=== PATIENT | female | born 1965 | race Caucasian/White ===

== ENCOUNTER 2016-07-22 07:34 | Emergency (ER) | payer MEDICAID ==
[~2016-07-22] VITALS: Ht 149.9 cm; Wt 63.0 kg
[~2016-07-22 07:34] MED LIST: CARAS PO; FAMO-18 PO; FAMO40TA52 PO; IBUP-1542 PO; OMEP20CA9 PO; ONDA4TAB35 PO; RANI150T5 PO; RANI150T9 PO
[2016-07-22 07:37] VITALS: Ht 149.9 cm; Wt 63.0 kg
[2016-07-22] MEDS ORDERED: LORATADINE 10 MG TAB PO STA (07:53)
[2016-07-22] MEDS ORDERED: IBUPROFEN 600 MG TAB PO STA (07:53)
--- NOTE | 2016-07-22 07:58 | ERD ---
ER Documentation Chief Complaint Date/Time DATE: 07/22/16 TIME: 07:56 Chief Complaint COUGH CONGESTION AND ALLERGIES X3 WKS HPI This is a 51-year-old female with no relevant medical history presenting to the emergency department complaining of cough, congestion, sneezing for the past 3 weeks. Patient states that she has been having a lot of phlegm and nasal congestion since last night and coughing more frequently since last night. Patient states that she does have mild chest pain with deep breath. Patient states that she has tried medication yesterday without any relief. Patient denies any fever ROS All systems reviewed and are negative except as per history of present illness. Medications Home Meds Active Scripts Acetaminophen* (Acetaminophen*) 650 Mg Tablet, 650 MG PO Q6H Y for PAIN AND OR ELEVATED TEMP, #30 TAB Prov:GEOVANNA OLIVER PA-C 07/22/16 Fluticasone Propionate (Flonase Allergy Relief) 9.9 Ml [place].susp, 1 SPRAY NASAL BID, #1 BOTTLE TO EACH NOSTRIL Prov:GEOVANNA OLIVER PA-C 07/22/16 Loratadine* (Claritin*) 10 Mg Tablet, 10 MG PO DAILY, #30 TAB Prov:GEOVANNA OLIVER PA-C 07/22/16 Famotidine* (Famotidine*) 40 Mg Tablet, 40 MG PO HS, #30 TAB Prov:SARAH LOFTON PA-C 11/11/15 Ibuprofen* (Motrin*) 600 Mg Tab, 600 MG PO Q6H Y for PAIN AND OR ELEVATED TEMP, #30 TAB Prov:SARAH LOFTON PA-C 11/11/15 Ranitidine Hcl* (Zantac*) 150 Mg Tablet, 150 MG PO BID for EPIGASTRIC PAIN, #30 TAB Prov:GEOVANNA OLIVER PA-C 05/18/15 Ondansetron Hcl* (Zofran* ODT) 4 mg -ODT Tab.disper, 4 MG PO Q6 Y for NAUSEA AND /OR VOMITING, #10 TAB Prov:GEOVANNA OLIVER PA-C 05/18/15 Omeprazole* (Prilosec*) 20 Mg Capsule.dr, 20 MG PO DAILY, #20 CAP Prov:GEOVANNA OLIVER-C 05/18/15 Famotidine* (Pepcid*) 20 Mg Tablet, 20 MG PO QHS for 4 Days, TAB Prov:GEOVANNA OLIVER PA-C 05/18/15 Sucralfate* (Carafate*) 1 Gm/10 Ml Susp, 1 GM PO TID Y for reflux symptoms for 14 Days, EA Prov:RAMEZ SALAS MD 04/12/15 Omeprazole* (Prilosec*) 20 Mg Capsule.dr, 20 MG PO DAILY for 30 Days, CAP Prov:RAMEZ SALAS MD 04/12/15 Ranitidine Hcl* (Zantac*) 150 Mg Tablet, 150 MG PO BID Y for Refulx symptoms, # 30 TAB Prov:RAMEZ SALAS MD 04/12/15 Reported Medications Ranitidine Hcl* (Ranitidine Hcl*) 150 Mg Tablet, 150 MG PO Q12, TAB 04/12/15 Allergies Allergies: Coded Allergies: No Known Allergy (Unverified , 11/11/15) PMhx/Soc History of Surgery: No Anesthesia Reaction: No Hx Neurological Disorder: No Hx Respiratory Disorders: No Hx Cardiac Disorders: No Hx Psychiatric Problems: No Hx Miscellaneous Medical Probl: No Hx Alcohol Use: No Hx Substance Use: No Hx Tobacco Use: No Physical Exam Vitals Vital Signs Date Time Temp Pulse Resp B/P Pulse Ox O2 Delivery O2 Flow Rate FiO2 07/22/16 07:37 98.9 115 18 109/54 97 Physical Exam GENERAL: well-developed/well-nourished, in no apparent distress, non-toxic appearing HEAD: NC/AT, no swelling noted in frontal or maxillary areas EARS: bilateral tympanic membrane is intact without erythema or effusion NARES: congested THROAT: oropharynx non-erythematous without exudates, no tonsil enlargement, post nasal drip EYES: Conjunctiva normal NECK: Supple, no lymphadenopathy PULM: CTA bilaterally, no rales, rhonchi, or wheezing heard CV: Normal S1S2, RRR, good capillary refill GI: Soft, non-distended, normal bowel sounds, non-tender BACK: No midline tenderness, no masses EXT No clubbing, cyanosis, or edema NEURO: Alert and Orientated SKIN: Intact, normal turgor PSYCH: Normal mood and mentation Results 24 hrs Current Medications Medications (Trade) Dose Ordered Sig/Lucian Route PRN Reason Start Time Stop Time Status Last Admin Dose Admin Loratadine (Claritin) 10 mg ONCE STAT PO 07/22/16 07:53 07/22/16 07:54 DC 07/22/16 08:12 Ibuprofen (Motrin) 600 mg ONCE STAT PO 07/22/16 07:53 07/22/16 07:54 DC 07/22/16 08:12 Procedures/MDM This is a 51-year-old female with no relevant medical history presenting to the emergency department complaining of cough, congestion, sore throat, sneezing for the past 3 weeks. This patient appears to have allergic versus viral sinusitis. There was no evidence of bacterial sinusitis, pneumonia, otitis media, strep pharyngitis on examination. Patient is afebrile, she appears well. Patient' was slightly tachycardic but she states that she is nervous and usually her heart rate runs higher. A chest x-ray was done in the ED did not show any evidence of infiltrates, pneumothorax or pleural effusion. EKG did not show any evidence of STEMI. Patient is suitable to follow-up with her primary care physician. Discussed return to the ER for any worsening signs or symptoms. Patient understands and agrees with this plan Prescriptions given: Claritin-d, Tylenol, Flonase CXR: Small scattered granulomas throughout the lungs. Possible tiny right upper lobe nodular opacity measuring 2 mm. Follow-up CT chest is recommended on a routine basis. I have discussed these diagnostic testing to the patient that she is suitable to follow-up with her regular physician to get a follow-up regarding her incidental chest x-ray findings. I have given her a copy of the report. I have discussed this case with my supervising physician Dr. Doe who agrees with this plan EKG: read and signed off by myself and Dr. Doe Rate/Rhythm: Sinus tachycardia at 1 10 bpm QRS, ST, T-waves: No changes consistent w/ acute ischemia Impression: No evidence of ischemia or arrhythmia Departure Diagnosis: Primary Impression: Sinusitis Condition: Stable GEOVANNA OLIVER PA-C Jul 22, 2016 07:58
--- NOTE | 2016-07-22 08:34 | RADRPT ---
PROCEDURE: XR Chest. CLINICAL INDICATION: chest pain, shortness of breath TECHNIQUE: Single frontal view of the chest was obtained COMPARISON: 11/11/2015 FINDINGS: The heart and mediastinum are within normal limits. There are possible scattered small granulomas throughout the lungs. There is a possible 2 mm right upper lobe nodular opacity. There is no focal infiltrate. There is no pleural effusion or pneumothorax. RPTAT: AA IMPRESSION: Small scattered granulomas throughout the lungs. Possible tiny right upper lobe nodular opacity measuring 2 mm. Follow-up CT chest is recommended on a routine basis. .Wesley Sagastume MD, MD Date Time Electronically viewed and signed by .Wesley Sagastume MD, on 07/22/2016 08:33 .S/
[2016-07-22] MEDS ORDERED: FLUT9.9S NASAL (08:56)
[2016-07-22] MEDS ORDERED: LORA-186 PO (08:56)
[2016-07-22] MEDS ORDERED: ACET-2047 PO (08:56)
== END 2016-07-22 09:23 | disposition home or self-care (01) ==
LOC: FTE 07:34
DX: J32.9 Chronic sinusitis, unspecified (principal); R07.9 Chest pain, unspecified
CPT/HCPCS: 71010; 93005; Z7610

== ENCOUNTER 2017-01-06 12:02 | Emergency (ER) | payer MEDICAID ==
[~2017-01-06] VITALS: Ht 152.4 cm; Wt 67.0 kg
[~2017-01-06 12:02] MED LIST changes: +ACET-2047 PO; -FAMO-18 PO; +FAMO-96 PO; +FLUT9.9S NASAL; +LORA-186 PO
[2017-01-06 12:12] VITALS: Ht 152.4 cm; Wt 67.0 kg
[2017-01-06] MEDS ORDERED: LIDOCAINE/MYLANTA 40 ML BTL PO ONE (13:30)
[2017-01-06] MEDS ORDERED: FAMOTIDINE 20 MG TAB PO ONE (13:30)
[2017-01-06] MEDS ORDERED: RANI150T9 PO (14:20)
[2017-01-06 14:51] VITALS: BP 115/73; PULSE 70; RESP 16
--- NOTE | 2017-01-06 14:59 | ERD ---
ER Documentation Chief Complaint Date/Time DATE: 01/06/17 TIME: 14:53 Chief Complaint nausea, heartburn x 2 days HPI This is a 51-year-old female resents the emergency department for nausea and burning type sensation to epigastric area 3 days. Patient states burning sensation to epigastric area is worse after eating. Patient also reports some nausea. No vomiting. Denies abdominal pain. Patient also reports patient states she has had heartburn in the past and was treated with omeprazole. Patient also reports feeling a "ball" in the back of her throat. No difficulty swallowing or drooling. Patient is talking in complete sentences. Patient started becoming tearful during initial assessment stated that she is nervous about having an ulcer. Patient did not take any medications at home for this. ROS All systems reviewed and are negative except as per history of present illness. Medications Home Meds Active Scripts Ranitidine Hcl* (Zantac*) 150 Mg Tablet, 150 MG PO BID Y for EPIGASTRIC PAIN, # 30 TAB Prov:RIA AMOS NP 01/06/17 Acetaminophen* (Acetaminophen*) 650 Mg Tablet, 650 MG PO Q6H Y for PAIN AND OR ELEVATED TEMP, #30 TAB Prov:GEOVANNA OLIVER PA-C 07/22/16 Fluticasone Propionate (Flonase Allergy Relief) 9.9 Ml [place].susp, 1 SPRAY NASAL BID, #1 BOTTLE TO EACH NOSTRIL Prov:GEOVANNA OLIVER PA-C 07/22/16 Loratadine* (Claritin*) 10 Mg Tablet, 10 MG PO DAILY, #30 TAB Prov:GEOVANNA OLIVER PA-C 07/22/16 Famotidine* (Famotidine*) 40 Mg Tablet, 40 MG PO HS, #30 TAB Prov:SARAH LOFTON PA-C 11/11/15 Ibuprofen* (Motrin*) 600 Mg Tab, 600 MG PO Q6H Y for PAIN AND OR ELEVATED TEMP, #30 TAB Prov:SARAH LOFTON PA-C 11/11/15 Ranitidine Hcl* (Zantac*) 150 Mg Tablet, 150 MG PO BID for EPIGASTRIC PAIN, #30 TAB Prov:GEOVANNA OLIVER PA-C 05/18/15 Ondansetron Hcl* (Zofran* ODT) 4 mg -ODT Tab.disper, 4 MG PO Q6 Y for NAUSEA AND /OR VOMITING, #10 TAB Prov:GEOVANNA OLIVER PA-C 05/18/15 Omeprazole* (Prilosec*) 20 Mg Capsule.dr, 20 MG PO DAILY, #20 CAP Prov:GEOVANNA OLIVER PA-C 05/18/15 Famotidine* (Pepcid*) 20 Mg Tablet, 20 MG PO QHS for 4 Days, TAB Prov:GEOVANNA OLIVER PA-C 05/18/15 Sucralfate* (Carafate*) 1 Gm/10 Ml Susp, 1 GM PO TID Y for reflux symptoms for 14 Days, EA Prov:RAMEZ SALAS MD 04/12/15 Omeprazole* (Prilosec*) 20 Mg Capsule.dr, 20 MG PO DAILY for 30 Days, CAP Prov:RAMEZ SALAS MD 04/12/15 Ranitidine Hcl* (Zantac*) 150 Mg Tablet, 150 MG PO BID Y for Refulx symptoms, # 30 TAB Prov:RAMEZ SALAS MD 04/12/15 Reported Medications Ranitidine Hcl* (Ranitidine Hcl*) 150 Mg Tablet, 150 MG PO Q12, TAB 04/12/15 Allergies Allergies: Coded Allergies: No Known Allergy (Unverified , 11/11/15) PMhx/Soc Medical and Surgical Hx: pt denies Medical Hx, pt denies Surgical Hx History of Surgery: No Anesthesia Reaction: No Hx Neurological Disorder: No Hx Respiratory Disorders: No Hx Cardiac Disorders: No Hx Psychiatric Problems: No Hx Miscellaneous Medical Probl: No Hx Alcohol Use: No Hx Substance Use: No Hx Tobacco Use: No Smoking Status: Never smoker Physical Exam Vitals Vital Signs Date Time Temp Pulse Resp B/P Pulse Ox O2 Delivery O2 Flow Rate FiO2 01/06/17 14:51 70 16 115/73 98 Room Air 01/06/17 12:12 98.1 78 20 125/80 99 Physical Exam Const: Alert, anxious Head: Atraumatic Eyes: Normal Conjunctiva ENT: Normal External Ears, Nose and Mouth. No erythema or exudate posterior pharynx. No peritonsillar abscess. Neck: Full range of motion..~ No meningismus. Resp: Clear to auscultation bilaterally Cardio: Regular rate and rhythm, no murmurs Abd: Soft, non tender, non distended. Normal bowel sounds Skin: No petechiae or rashes Back: No midline or flank tenderness Ext: No cyanosis, or edema Neur: Awake and alert Psych: Normal Mood and Affect Results 24 hrs Current Medications Medications (Trade) Dose Ordered Sig/Lucian Route PRN Reason Start Time Stop Time Status Last Admin Dose Admin Miscellaneous Medication (Gi Cocktail (2)) 40 ml ONCE ONCE PO 01/06/17 13:30 01/06/17 13:31 DC 01/06/17 13:12 Famotidine (Pepcid) 20 mg ONCE ONCE PO 01/06/17 13:30 01/06/17 13:31 DC 01/06/17 13:13 Procedures/MDM EKG: As interpreted by myself and Dr. Stewart Rate/Rhythm: Normal sinus rhythm with heart rate 96 bpm QRS, ST, T-waves: No changes consistent w/ acute ischemia Impression: No evidence of ischemia or arrhythmia MDM: This is a 51-year-old female presenting to the emergency department with epigastric burning sensation and nausea 3 days. Patient given GI cocktail and Pepcid p.o. while in the ED. patient is swallowing without difficulty. Patient is talking in complete sentences. Patient appears anxious. Upon reassessment, patient states pain has improved. Patient continues to be anxious and somewhat tearful throughout ED visit. Patient's vitals remained stable. EKG shows normal sinus rhythm with heart rate [address] Thomas regarding this patient and we agree that patient is appropriate for outpatient management. Patient may need follow-up with GI specialist. Differential diagnosis includes but not limited to acute CA, pancreatitis, peptic ulcer disease, GERD, gastritis, cholecystitis, cholelithiasis, choledocholithiasis and gastroparesis and functional dyspepsia. I doubt acute CA due to patient's normal vital signs, patient denies chest pain , shortness of breath, difficulty breathing or heart palpitations. Patient is appropriate for outpatient management and instructed to follow-up with primary care provider in the next 2-3 days for reassessment. Return to ED for any high fever, chest pain, difficulty breathing, shortness breath, wheezing , vomiting, diarrhea, abdominal pain or any new or worsening symptoms. Patient verbalizes understanding. All questions answered at discharge. Congolese translation use during this encounter. Disclaimer: Inadvertent spelling and grammatical errors are likely due to EHR/ dictation software use and do not reflect on the overall quality of patient care. Also, please note that the electronic time recorded on this note does not necessarily reflect the actual time of the patient encounter. Departure Diagnosis: Primary Impression: Dyspepsia Condition: Stable Patient Instructions: Tips to Control Acid Reflux, What Is Acid Reflux?, Treating Gastritis, Gastritis Vs. Ulcer Ref[facility]: [facility] Usted se flores hecho un examen mdico de control que le indica que no est en bertha condicin que requiera tratamiento urgente en el Departamento de Emergencia. Un estudio ms profundo y el tratamiento de dacosta condicin pueden esperar sin ningn riesgo hasta que usted sea atendida/o en el consultorio de dacosta mdico o bertha cl radha. Es responsabilidad suya arreglar bertha asher para el seguimiento del adithya. MANEJO DE CONDICIONES NO URGENTES EN EL FUTURO 1) Si usted tiene un mdico de atencin primaria: Usted debera llamar a dacosta mdico de atencin primaria antes de venir al departamento de emergencia. Despus de las horas de consultorio, dacosta doctor o dacosta asociado/a est disponible por telfono. El mdico o enfermero de nickie en el servicio telefnico puede asesorarle por hien medio para atender el problema, o adithya contrario se puede programar bertha asher. 2) Si usted no tiene un mdico de atencin primaria: Llame al mdico o clnica de referencia que aparece abajo kilo las horas de consultorio para hacer ebrtha asher para que le vean. CLINICAS: [facility] [phone] [address] [facility] [place] [address] [phone] [facility] [phone] [place] [id number] [phone] [place] [id number] [phone] [facility]. [phone] [address] . [facility] () Usted se flores hecho un examen mdico de control que le indica que no est en bertha condicin que requiera tratamiento urgente en el Departamento de Emergencia. Un estudio ms profundo y el tratamiento de dacosta condicin pueden esperar sin ningn riesgo hasta que usted sea atendida/o en el consultorio de dacosta mdico o bertha cl radha. Es responsabilidad suya arreglar bertha asher para el seguimiento del adithya. MANEJO DE CONDICIONES NO URGENTES EN EL FUTURO 1) Si usted tiene un mdico de atencin primaria: Usted debera llamar a dacosta mdico de atencin primaria antes de venir al departamento de emergencia. Despus de las horas de consultorio, dacosta doctor o dacosta asociado/a est disponible por telfono. El mdico o enfermero de nickie en el servicio telefnico puede asesorarle por hien medio para atender el problema, o adithya contrario se puede programar bertha asher. 2) Si usted no tiene un mdico de atencin primaria: Llame al mdico o condado institucions de referencia que aparece abajo kilo las horas de consultorio para hacer bertha asher para que le vean. SI USTED NO PUEDE PAGAR PARA GEM UN MEDICO puede ir a: [facility] [id number] [place] [address] [facility] [address] [place] [address] [facility] [address] [place] [address] [facility]A [facility] [address] [place], [place] [id number] Additional Instructions: Llame al doctor MAANA y skylar bertha ASHER PARA DENTRO DE 2-3 AMAYA.Dgale a la secretaria que nosotros le instruimos hacer esta asher.Avise o llame si dacosta condicin se empeora antes de la asher. Regresa aqui si peor o no mejor. Vuelva a Ed para cualquier fiebre mary, dolor en el pecho, dificultad para respirar, respiracin entrecortada, sibilancias, vmitos, diarrea, dolor abdominal o cualquier sntoma nuevo o empeoramiento. RIA AMOS NP Jan 06, 2017 14:59
== END 2017-01-06 14:55 | disposition home or self-care (01) ==
LOC: FTE 12:02
DX: R10.13 Epigastric pain (principal)
CPT/HCPCS: 93005; Z7502; Z7610

== ENCOUNTER 2017-10-12 10:24 | Emergency (ER) | END 2017-10-12 14:30 | disposition home or self-care (01) ==

== ENCOUNTER 2018-04-09 12:36 | Emergency (ER) | payer SELFPAY ==
[~2018-04-09] VITALS: Wt 63.1 kg
[~2018-04-09 12:36] MED LIST changes: -ACET-2047 PO; +ACET325T40 PO; -CARAS PO; -FAMO-96 PO; -FAMO40TA52 PO; -FLUT9.9S NASAL; -IBUP-1542 PO; +LOPE-123 PO; -LORA-186 PO; +OMEP20CA16 PO; -OMEP20CA9 PO; -ONDA4TAB35 PO; -RANI150T5 PO; -RANI150T9 PO
[2018-04-09 12:43] VITALS: BP 127/91; PULSE 76; RESP 17
== END 2018-04-09 18:00 | disposition left against medical advice (07) ==
LOC: FTE 12:36
DX: Z53.21 Procedure and treatment not carried out due to patient leaving prior to being seen by health care provider (principal)

== ENCOUNTER 2018-12-02 09:49 | Emergency (ER) | payer MEDICAID ==
[~2018-12-02] VITALS: Ht 157.5 cm; Wt 89.0 kg
[~2018-12-02 09:49] MED LIST changes: +BENZ-6 PO; +D-ME473S2 PO
[2018-12-02 09:51] VITALS: BP 122/67; Ht 157.5 cm; Wt 89.0 kg
[2018-12-02 12:32] VITALS: PULSE 112; RESP 16
== END 2018-12-02 12:35 | disposition home or self-care (01) ==
LOC: FTE 09:49
DX: R05 Cough (principal)
CPT/HCPCS: 71045; 93005; Z7502